=== PATIENT | female | born 1970 | race Asian ===

== ENCOUNTER 2016-12-01 07:39 | Day surgery (SDC) | payer MEDICAID ==
[2016-12-01] MEDS ORDERED: ECOTRIN PO ONE (08:03)
[2016-12-01 08:20] LABS: Basophils % (Auto) 0.8 % (0.0-1.8); Hematocrit 40.2 % (30.3-42.9); Hemoglobin 13.6 gm/dl (10.1-14.3); Mean Corpuscular HGB Conc 34 % (30-34); Mean Corpuscular Hemoglobin 32 pg (28-32); Mean Corpuscular Volume 95 fl (79-97); Platelet Count 217 K/mm3 (140-440); Red Blood Count 4.22 M/mm3 (3.65-5.03); Red Cell Distribution Width 13.2 % (13.2-15.2); White Blood Count 4.8 K/mm3 (4.5-11.0)
[2016-12-01 08:36] LABS: INR 0.96 (0.87-1.13)
[2016-12-01 08:39] LABS: Anion Gap 14 mmol/L; BUN/Creatinine Ratio 28.57; Blood Urea Nitrogen 20 mg/dL (7-17); Calcium 9.2 mg/dL (8.4-10.2); Carbon Dioxide 29 mmol/L (22-30); Chloride 102.3 mmol/L (98-107); Glucose 96 mg/dL (65-100); Potassium 4.4 mmol/L (3.6-5.0); Sodium 141 mmol/L (137-145)
[2016-12-01] MEDS ORDERED: NACL 0.9% 500 ML 500 ML IV SCH (09:00)
[2016-12-01] MEDS ORDERED: HEPARIN 10,000 UNITS/10 ML ONE (09:04)
[2016-12-01] MEDS ORDERED: HEPARIN/NS 5000 UNIT/500ML(CATH LAB) 1,000 ML IR ONE (09:04)
[2016-12-01] MEDS ORDERED: XYLOCAINE 2% INFILTRATI ONE (09:04)
[2016-12-01] MEDS ORDERED: CALAN ONE (09:04)
[2016-12-01] MEDS ORDERED: SUBLIMAZE ONE (09:05)
[2016-12-01] MEDS ORDERED: VERSED ONE (09:05)
[2016-12-01] MEDS ORDERED: NITROGLYCERIN SYRINGE 3 ML ONE (09:05)
--- NOTE | 2016-12-01 10:14 | Short Stay Summary ---
Short Stay Documentation Date of service: 12/01/16 - History H&P: obtained from office - Allergies and Medications Current Medications: Allergies No Known Allergies Allergy (Verified 12/01/16 07:55) Home Medications Medication Instructions Recorded Confirmed Last Taken Type Ibuprofen [Motrin 800 MG tab] 800 mg PO DAILY PRN 12/01/16 12/01/16 11/26/16 History 800mg Active Medications Sodium Chloride (Nacl 0.9% 500 Ml) 500 mls @ 50 mls/hr IV DIRECT CURTIS Stop: 12/01/16 18:59 Last Admin: 12/01/16 08:35 Dose: 50 mls/hr - Brief post op/procedure progress note Date of procedure: 12/01/16 Pre-op diagnosis: abnormal stress test Post-op diagnosis: other (normal coroanries and normal lv function) Procedure: see report Anesthesia: local Estimated blood loss: none Pathology: none - Disposition Condition at discharge: Good Disposition: DISCHARGED TO HOME OR SELFCARE - Discharge Diagnoses (1) Abnormal nuclear stress test Status: Acute Short Stay Discharge Plan Activity: advance as tolerated Diet: low fat, low cholesterol Wound: keep clean and dry Follow up with: JUAN CHESTER MD [Staff Physician] - 7 Days
--- NOTE | 2016-12-01 10:44 | Cardiac Catherization Report ---
LEFT HEART CATHETERIZATION ORDERING PHYSICIAN: Riaz Garcia M.D. CLINICAL INFORMATION: This is a 46-year-old female who is going for hysterectomy had a preoperative stress test which was abnormal, is here for a left heart catheterization. Left heart catheterization performed via the right radial artery, sterile technique, local anesthesia, 5-Swiss radial sheath inserted. Left system engaged with a JL3.5 catheter. FINDINGS: Left main is short and patent, bifurcates into a medium caliber. LAD is patent, mid to distal LAD becomes a small caliber vessel, it is patent. Diagonal 1 is a small caliber vessel, it is patent. Circumflex large caliber, patent. OM1 and OM2 are medium caliber vessel, patent. RCA engaged with JR4 catheter, is a large dominant vessel, patent from proximally and distally, small PDA and PLV are patent. LV gram done in [facility] and ACE view shows normal LV function. EF 55-60%. LVEDP 12 mmHg, LV is 100/12. Aortic is 191/52. No gradient across the aortic valve on pullback. 5-Swiss catheters were taken over a guidewire, 5-Swiss radial sheath was discontinued. Radial dressing applied. No hematoma. No bleeding. SUMMARY: 1. Patent coronaries, normal LV function, mixed dominant system. 2. Continue risk factor modification, discussed this with the patient and the patient's family. JOB# [id number] ALBERT/SEUN VILLAGOMEZ
[2016-12-01 12:11] VITALS: BP 99/60
== END 2016-12-01 12:45 | disposition home or self-care (01) ==
LOC: OPU 07:39
PROVIDERS: ATTEND Internal Medicine
DX: R94.39 Abnormal result of other cardiovascular function study (principal); Z79.01 Long term (current) use of anticoagulants
CPT/HCPCS: 36415; 80048; 85025; 85610; 85730; 93005; 93010; 93458; C1894; J1644; J2250; J3010; J7040; Q9967